=== PATIENT | male | born 1955 | race Caucasian/White ===

== ENCOUNTER → 2019-09-30 | Outpatient (CLI) | payer BC, OTHER ==
--- NOTE | 2019-09-30 13:02 | Diagnostic Imaging Report ---
Exam: PA and lateral chest radiograph Clinical history: Chest pain Findings: There is moderate cardiomegaly. There is no evidence of pulmonary consolidation, pleural effusion, or pneumothorax. Post median sternotomy changes are noted. Impression: 1. Moderate cardiomegaly. Signed by: Dr. Wilner Tapia MD on 09/30/2019 12:59 PM
== END ==
LOC: RAD 12:21
PROVIDERS: ATTEND Internal Medicine
DX: R07.9 Chest pain, unspecified (principal)
CPT/HCPCS: 71046